=== PATIENT | female | born 1990 | race Caucasian/White ===

== ENCOUNTER 2016-11-07 05:45 | Inpatient (IN) | payer BC ==
[~2016-11-07] VITALS: Ht 170.2 cm; Wt 66.7 kg
--- NOTE | ~2016-11-07 | FD ---
ADMIT: 11/07/2016 RM/LOC: 201 [facility] MR#: [id number] [address] [address] SHARI BHATIA [address] [place] [address] Final Diagnosis SEX: F AGE: 26 : 1990 ADMISSION DATE: 11/07/2016 DISCHARGE DATE: 11/08/2016 FINAL DIAGNOSIS: 1. A 26-year-old 2 para 2-0-0-2, status post spontaneous vaginal delivery. 2. History of preeclampsia with first . PROCEDURE: 1. Spontaneous vaginal delivery. 2. Epidural catheter placement and removal. Abbie Flores MD Resident / Alina Oliva MD / ryne JOB #: [id number] CC: Alina Oliva MD, Attending Physician Alina Oliva MD, Family Physician
[~2016-11-07 05:45] MED LIST: COLACE100 MG PO; FEOSOL325 MG PO; MOTRIN-DPS800 MG PO; NEWMANS NIPPLE CREAM TP; PRENATAL VITAM1 EAC1 PO; TYLENOL #3 DPS1 TAB PO
[2016-11-09] MEDS ORDERED: MOTRIN-DPS800 MG PO (09:39)
[2016-11-09] MEDS ORDERED: PRENATAL VIT1 TAB PO (09:39)
[2016-11-09] MEDS ORDERED: NIPPLECREAM TP (09:40)
--- NOTE | 2016-12-09 07:41 | HP ---
ADMIT: 11/07/2016 RM/LOC: 201 [facility] MR#: [id number] [address] [address] SRIRAMSHARI YOU [address] [address] History and Physical SEX: F AGE: 26 : 1990 DATE OF SERVICE: REASON FOR ADMISSION: Contractions. HISTORY OF PRESENT ILLNESS: The patient is a 26-year-old 2 para 1-0-0- 1 who presented to Labor and Delivery at 39 and 1/7th weeks' gestation with complaints of contractions. The patient was noted to make cervical change, and so was admitted in active labor. The patient denied any vaginal bleeding or loss of fluid. The patient's has been otherwise uncomplicated. LABORATORY DATA: Blood type A positive, antibody screen negative, RPR nonreactive, rubella immune, group B Strep negative, HIV negative, gonorrhea and chlamydia negative, and hepatitis B surface antigen negative. PAST MEDICAL HISTORY: Noncontributory. PAST SURGICAL HISTORY: None. CURRENT MEDICATIONS: vitamins daily. ALLERGIES: NO KNOWN MEDICAL ALLERGIES. FAMILY HISTORY: Father with thyroid disorder. SOCIAL HISTORY: The patient is . She denies any alcohol, tobacco, or drug use. PHYSICAL EXAMINATION: VITAL SIGNS: On admission blood pressure 120/77, pulse 80, temperature 97.2, and respirations 18. GENERAL: The patient is alert and oriented, no acute distress. HEART: Regular rate and rhythm without murmurs, gallops, or rubs. LUNGS: Clear to auscultation bilaterally. ADMIT: 11/07/2016 RM/LOC: 201 [facility] MR#: [id number] [address] [address] SAHRI BHATIA [facility] [place] [address] History and Physical SEX: F AGE: 26 : 1990 ABDOMEN: Soft, nontender, gravid. EXTREMITIES: No edema. No calf tenderness. heart tones are in the 130s with moderate variability and accelerations present. Contractions every 2 to 3 minutes. Cervix 2 cm dilated, 60% effaced, and -2 station. ASSESSMENT/PLAN: 1. A 26-year-old 2 para 1-0-0-1 at 39 and 1/7th weeks' gestation. 2. Active labor. Plan to admit in labor, anticipate spontaneous vaginal delivery. 3. History of hemorrhage. We will monitor closely post delivery. Alina Oliva MD/ tiesha JOB #: [id number] CC: Alina Oliva, Attending Physician Alina Oliva, Family Physician
--- NOTE | 2016-12-16 14:50 | OR ---
ADMIT: 11/07/2016 RM/LOC: 201 [facility] MR#: [id number] [id number] [facility] [address] [place] [id number] SHARI BHATIA [address] [place] [address] Operative/Delivery Room Report SEX: F AGE: 26 : 1990 SURGERY DATE: 11/07/2016 SURGEON: Alina Oliva MD PROCEDURE: Spontaneous vaginal delivery. RESIDENT: Abbie Flores MD Resident PREPROCEDURE DIAGNOSES: 1. A 26-year-old, G2, P1-0-0-1 with intrauterine at 39 weeks 1 day. 2. History of hemorrhage in previous delivery. 3. History of preeclampsia in last . POSTPROCEDURE DIAGNOSES: 1. A 26-year-old, G2, P2-0-0-2, status post spontaneous vaginal delivery at 39 weeks 1 day. 2. First-degree perineal laceration, status post repair. ESTIMATED BLOOD LOSS: 250 mL. COMPLICATIONS: None, the patient tolerated procedure well. FINDINGS: Viable male with a weight of 3470 g in DENNIS presentation. Apgars 9 and 9. Normal placenta with 3-vessel cord. HOSPITAL COURSE AND PROCEDURE: This is a 26-year-old, G2, P1-0-0-1 with intrauterine at 39 weeks 1 day, who presented to the [facility] with contractions. The patient was found to make cervical change and was admitted. Epidural anesthesia was utilized. The patient ultimately progressed to complete without further augmentation. The patient was complete and placed in a dorsal lithotomy position. The patient was prepped and draped in normal sterile fashion. Expulsive efforts were begun. The infant's head was brought to the perineum and delivered over an intact perineum. No nuchal cord was present. The anterior and posterior shoulder delivered without difficulties. The body followed. The was vigorous and crying and was placed on the maternal abdomen. The baby was stimulated, bulb suction was not performed. Delayed cord clamping was performed. The cord was clamped and cut. Cord blood was collected. Cord gas was not collected. The placenta ADMIT: 11/07/2016 RM/LOC: 201 [facility] MR#: [id number] [facility] [address] [place] [id number] [place] [address] Operative/Delivery Room Report SEX: F AGE: 26 : 1990 delivered spontaneously with 3-vessel cord. Pitocin was administered per protocol. The vagina, perineum, and cervix were inspected for lacerations. A first-degree perineal laceration was present and was repaired with one figure- of-eight stitch with 2-0 Vicryl suture. All tissues were found to be hemostatic at that time. Uterine fundus was found to be firm and below the umbilicus. Bleeding was within normal limits. With history of hemorrhage, 800 mcg of Cytotec was placed rectally at completion of the procedure. All tissues were hemostatic and all counts were correct x2. At the completion, the patient's epidural catheter was removed. The catheter tip was intact at time of removal. Dr. Alina Oliva was present for the entire procedure. Abbie Flores MD Resident / Alina Oliva MD / kathyal JOB #: [id number] CC: Alina Oliva, Attending Physician Alina Oliva, Family Physician
== END 2016-11-08 18:30 | disposition home or self-care (01) | DRG 775 ==
LOC: BC 05:45 → 2LDRP 05:45 → BC 11-13 08:00
PROVIDERS: ADMIT Obstetrics & Gynecology
PROC: 0HQ9XZZ Repair Perineum Skin, External Approach (ICD-10-PCS; principal; 2016-11-07)
PROC: 10E0XZZ Delivery of Products of Conception, External Approach (ICD-10-PCS; principal; 2016-11-07)
DX: O70.0 First degree perineal laceration during delivery (principal); Z37.0 Single live birth; Z3A.39 39 weeks gestation of pregnancy